=== PATIENT | female | born 1955 | race Caucasian/White ===

== ENCOUNTER 2023-05-04 01:24 | Emergency (ER) | payer MEDICARE, SELFPAY ==
[2023-05-04] VITALS (30 sets, daily range): BP systolic 89–191; BP diastolic 50–89; PULSE 44–87; RESP 11–22; TEMP 36.4; O2SAT 94–100
--- NOTE | ~2023-05-04 | XR_ITS ---
Portable chest x-ray Comparison: 11/23/2003 Clinical History: Shortness of breath Findings: Lungs are clear, without focal consolidation or pleural effusion. Cardiomediastinal silho uette is stable. Bones and soft tissues are unremarkable. Impression: Normal chest. Reviewed, dictated and finalized at location . Impression: Normal chest.
--- NOTE | 2023-05-04 01:38 | ED.GENADULT ---
HPI - General Adult General Chief complaint: Allergic Reaction Stated complaint: allergic reaction, unknown Time Seen by Provider: 05/04/23 01:30 History of Present Illness HPI narrative: Patient presents to the emergency department with allergic reaction. Has not had allergic reactions in the past. She and her both pork and green beans for dinner. Then she gave the dogs a bath in the shower with her soap. She has done this in the past without reaction. However she started to have large hives on her chest abdomen and back. Then started feeling her throat was swelling shut. She has not taken anything prior to arrival. Related Data Allergies Allergy/AdvReac Type Severity Reaction Status Date / Time No Known Allergies Allergy Verified 05/04/23 01:52 Exam Narrative: GENERAL: Well-appearing, well-nourished, and in no acute distress. HEAD: Normocephalic, atraumatic. EYES: PERRLA and EOMI. ENT: Nares clear, no rhinorrhea or epistaxis. Mucous membranes moist. NECK: Supple. CHEST: Clear to auscultation. No respiratory distress. HEART: Regular rate and rhythm. ABDOMEN: Soft, nontender, nondistended. EXTREMITIES: Normal range of motion. No edema. SKIN: Warm, dry, hives diffuse chest abdomen buttock NEURO: No focal deficits. Alert and oriented x3. PSYCH: Normal mood and affect. Course Course Emergency Course: Differential diagnosis includes but not limited to allergic reaction, stress reaction, Food allergy, allergy to shampoo Hives noted on exam. Patient is not having any difficulty swallowing currently and her oxygen saturation is 100% without wheezing on exam. Telemetry ordered due to allergic reaction to evaluate for dysrhythmias. Evaluated by myself. Rhythm NSR Rate 68 Vital Signs Vital signs: Vital Signs Temperature 36.4 C L 05/04/23 01:25 Pulse Rate 81 05/04/23 01:25 Respiratory Rate 22 H 05/04/23 01:25 Blood Pressure 191/89 H 05/04/23 01:25 Pulse Oximetry 100 05/04/23 01:25 Oxygen Delivery Room Air 05/04/23 01:25 Temperature 36.4 C L 05/04/23 01:25 Pulse Rate 78 05/04/23 02:16 Respiratory Rate 15 05/04/23 02:16 Blood Pressure 116/76 05/04/23 02:15 Pulse Oximetry 100 05/04/23 02:16 Oxygen Delivery Room Air 05/04/23 01:25 Medical Decision Making MDM Narrative Medical decision making narrative: Patient received Solu-Medrol and Benadryl. After getting Solu-Medrol her heart rate started to drop to 40s.. Also her blood pressure dropped to 90 systolic from the initial blood pressure of 191/81. Epinephrine ordered and will reassess Due to high probability of clinically significant lift threatening deterioration, the patient required my highest level of preparedness to intervene emergently. Critical care time documented not including procedures needed Due to vital sign changes I spoke to the hospitalist regarding admission for the patient for observation for possible recurrence of shock. Patient has been observed 3 hours since the episode with normal vital signs throughout. Hospitalist states that they will not do anything for her if she is admitted. He recommends discharging her home with an EpiPen. Vital Signs Vital Signs: Vital Signs Temperature 36.4 C L 05/04/23 01:25 Pulse Rate 81 05/04/23 01:25 Respiratory Rate 22 H 05/04/23 01:25 Blood Pressure 191/89 H 05/04/23 01:25 Pulse Oximetry 100 05/04/23 01:25 Oxygen Delivery Room Air 05/04/23 01:25 Temperature 36.4 C L 05/04/23 01:25 Pulse Rate 78 05/04/23 02:16 Respiratory Rate 15 05/04/23 02:16 Blood Pressure 116/76 05/04/23 02:15 Pulse Oximetry 100 05/04/23 02:16 Oxygen Delivery Room Air 05/04/23 01:25 Lab Data 05/04/23 02:07 05/04/23 02:06 Labs: Lab Results 05/04/23 05/04/23 05/04/23 Range/Units 02:06 02:06 02:07 WBC 8.8 (4.5-10.0) K/mm3 RBC 4.11 L (4.2-5.4) M/mm3 Hgb 12.8 (12.0-15.0) g/dL Hct 3
[2023-05-04] MEDS: methylPREDNISolone SOD SUCC 125 MG VIAL IV PUSH (01:53)
[2023-05-04] MEDS: FAMOTIDINE 20 MG/2 ML VIAL IV PUSH (01:53)
[2023-05-04] MEDS: SODIUM CHLORIDE 0.9% IV 1,000 ML 999 ML IV CONT ×2 (01:53→02:10)
--- NOTE | 2023-05-04 01:57 | ECG_ITS ---
Measurements Intervals [place] Rate: 44 P: -4 NV: 112 QRS: 52 QRSD: 79 T: 132 QT: 438 QTc: 377 Interpretive Statements SINUS BRADYCARDIA WITH SHORT NV INTERVAL VOLTAGE CRITERIA FOR LVH ST-T WAVE ABNORMALITY IN LAT/HIGH LAT LEADS- CONSIDER ISCHEMIA BASELINE ARTIFACT- I, II, AVR, AVL, AVF, V1, V5 ABNORMAL ECG NO PREVIOUS ECG AVAILABLE FOR COMPARISON Electronically Signed On 05-04-2023 6:37:20 CDT by Toro Callejas D.O.
--- NOTE | 2023-05-04 02:02 | PC.NURSE ---
Benadryl not given because patient bradycardic with heart rate in the 40s and patient feels dizzy.
[2023-05-04] MEDS: EPINEPHrine HCL INJ 1 MG/ML AMPUL 0.3 MG IM (02:05)
[2023-05-04 02:22] LABS: Basophils Absolute Auto 0.1 K/mm3 (0.0-0.1); Basophils Percent Auto 0.8 % (0.2-1.2); Eosinophils Absolute Auto 0.4 K/mm3 (0-0.3); Eosinophils Percent Auto 4.2 % (0-4.4); Hematocrit 38.3 % (37.0-47.0); Hemoglobin 12.8 g/dL (12.0-15.0); Immature Granulocyte Absolute 0.02 K/mm3 (0.00-0.031); Immature Granulocyte Percent A 0.2 % (0-0.5); Lymphocytes Absolute Auto 3.74 K/mm3 (0.9-3.2); Lymphocytes Percent Auto 42.7 % (18.3-44.2); Mean Corpuscular HGB Conc 33.4 g/dl (32-36); Mean Corpuscular Hemoglobin 31.1 pg (26-34); Mean Corpuscular Volume 93.2 fl (80-100); Monocytes Absolute Auto 0.8 K/mm3 (0.1-0.6); Monocytes Percent Auto 8.9 % (2.6-8.5); Neutrophils Absolute Auto 3.8 K/mm3 (1.3-6.7); Neutrophils Percent Auto 43.2 % (45.5-73.1); Platelet Count Result 229 k/mm3 (150-375); Red Blood Count 4.11 M/mm3 (4.2-5.4); Red Cell Distribution Width 13.1 % (11.5-14.5); White Blood Count 8.8 K/mm3 (4.5-10.0)
[2023-05-04 02:50] LABS: Alanine Aminotransferase 20 U/L (6-35); Albumin Level 3.5 g/dL (3.5-5.1); Alkaline Phosphatase 63 U/L (38-126); Anion Gap 7 mmol/L (8-16); Aspartate Amino Transferase 23 U/L (14-36); Bilirubin,Total 0.3 mg/dL (0.2-1.3); Blood Urea Nitrogen 18 mg/dL (7-17); Calcium 8.4 mg/dL (8.4-10.2); Carbon Dioxide 23 mmol/L (22-30); Chloride 109 mmol/L (98-107); Estimated CRCL calculation 48 ml/min; Estimated Glomerular Filt Rate 50; Glucose 121 mg/dL (65-110); Potassium 3.4 mmol/L (3.4-5.0); Sodium 139 mmol/L (137-145)
[2023-05-04 03:02] LABS: Troponin I < 0.012 ng/mL (0.000-0.034)
--- NOTE | 2023-05-04 04:35 | PC.NURSE ---
Patient able to get up from stretcher and ambulate to bathroom without assistance or dizziness. Patient reports she feels much better now.
== END 2023-05-04 05:35 | disposition home or self-care (01) ==
PROVIDERS: Emergency Provider Emergency Medicine
DX: T78.2XXA Anaphylactic shock, unspecified, initial encounter (principal); R00.1 Bradycardia, unspecified; R94.31 Abnormal electrocardiogram [ECG] [EKG]
CPT/HCPCS: 36415; 71045; 80053; 84484; 85025; 93005; 96361; 96372; 96374; 96375; 99284; J0171; J1200; J2405; J2930; J7030

== ENCOUNTER 2024-12-29 16:13 | Emergency (ER) | payer MEDICARE, SELFPAY ==
--- NOTE | ~2024-12-29 | CT_ITS ---
CT cervical spine wo con Ordering provider: Kaila Mccord MD History: . fall., head injury . Comparison: January 07, 2005 Technique: CT of the cervical spine was performed without contrast. Sagittal and coronal reformatted images were also obtained and reviewed. Automated exposure control and iterative reconstruction ryan hnique were employed. The dose-length product was 390.61 mGy-cm. FINDINGS: VERTEBRAE: No subluxation or acute fracture. The occipital condyles are intact. DISC SPACES: Narrowing of the disc C5-C6.Uncovertebral joint osteoarthritic changes at the same level . Narrowing of the foramina at the level of C3-C4. Narrowing of the right foramen at the level of C4- C5. Bilateral narrowing of the foramina at the level of C5-C6. PARASPINOUS SOFT TISSUES: Normal. IMPRESSION: No acute osseous abnormality cervical spine. Degenerative disc disease at the level of C5-C6. Reviewed, dictated and finalized at location A.
--- NOTE | ~2024-12-29 | CT_ITS ---
CT brain wo con Ordering provider: Kaila Mccord MD History: 69 years Female with . fall., head injury . Comparison: None. Technique: CT of the head without contrast. Radiation reduction technique utilized.The dose-length product was 681 mGy-cm. FINDINGS: BRAIN PARENCHYMA AND CSF SPACES: Mild leukoaraiosis and diffuse cortical atrophy. Mild atheromatous d isease. Possible hypodensity in the area of the arcelia which may indicate old lacunar infarct versus an artifact.. No midline shift, mass effect or hemorrhage. The brain parenchyma and CSF spaces are oth erwise normal. Empty sella turcica. VISUALIZED PARANASAL SINUSES: Right maxillary sinus disease. Otherwise, Well aerated. MASTOIDS: Well aerated. BONES: The bones appear intact. SOFT TISSUES: Visualized nasopharynx is normal. Small left frontal scalp hematoma otherwise, Superfi cial soft tissues are normal. IMPRESSION: No acute intracranial findings. Reviewed, dictated and finalized at location A.
--- OUTSIDE RECORDS SUMMARY | 2024-12-29 16:15 | XMS_ITS | Clinical Summary ---
Author Organization [facility] Address [address] [place] [address] Care Team Providers Care Camera Repairman Name Role Phone Sandra Ball MD Primary Care Provider [phone] Allergies No known active allergies Medications EPINEPHrine 0.3 MG/0.3ML injectionIndicatio ns:Allergy, initial encounter Inject 0.3 mLs (0.3 mg total) into the muscle as needed. 1 each 2 05/13/20 23 Active Vitamin D3 (VITAMIN D) 50 mcg tablet Take 1 tablet (50 mcg total) by mouth daily. Active topiramate (TOPAMAX) 50 MG TabIndications:Cla ss 1 obesity due to excess calories with serious comorbidity and body mass index (BMI) of 33.0 to 33.9 in adult Take 1 tablet (50 mg total) by mouth nightly at bedtime. 90 tablet 1 01/05/20 24 Active atorvastatin (LIPITOR) 10 MG tabletIndications: Mixed hyperlipidemia Take nightly on Tuesdays and . 90 tablet 1 01/05/20 24 Active metFORMIN ER (GLUCOPHAGE-XR) 500 MG 24 hr tabletIndications: Prediabetes Take 1 tablet (500 mg total) by mouth daily with breakfast. 90 tablet 1 01/05/20 24 Active Additional Information Patient not taking.Reported on 09/28/2024 topiramate (TOPAMAX) 50 MG TabIndications:Cla ss 2 severe obesity due to excess calories with serious comorbidity and body mass index (BMI) of 36.0 to 36.9 in adult (CMS/HCC) Take 1 tablet (50 mg total) by mouth 2 (two) times daily. 180 tablet 04/11/20 24 Active methylPREDNISolone , SUZY, (MEDROL DOSEPAK) 4 MG tabletIndications: URTI (acute upper respiratory infection) 6 TABLETS ON DAY ONE, 5 TABLETS DAY TWO, 4 TABLETS DAY THREE, 3 TABLETS DAY FOUR, 2 TABLETS DAY FIVE, AND 1 TABLET DAY SIX 1 each 09/28/19 25 Active Active Problems Problem Noted Date Diagnosed Date Stage 3a chronic kidney disease 09/17/2023 Encounters Date Type Department Care Team Description 12/13/[address] [place], [place] [id number] Sandra Ball MD Follow Up Call 11/09/[address] [place] [address] Sandra Ball MD Appointment Request (Declined AWV) 10/05/[address] [place] [address] Sandra Ball MD Follow Up Call from Last 3 Months Immunizations Immunization Administration Dates Next Due Arexvy Respiratory Syncytial Virus (RSV, adjuvanted) 0.5 mL, PF 12/14/2023 Flublok (Quadrivalent) 05/08/2020 Fluzone High Dose - >Age 65 (Prefilled Syringe) 05/13/2023 Influenza (Generic) 05/08/2020 Influenza Adult (Generic) 06/14/2024,05/16/2021 MODERNA COVID-19 (12+) MRNA, LNP-S, PF, 100 MCG/ 0.5 ML DOSE 07/07/2023 MODERNA COVID-19 (12+), MRNA , LNP-S, PF, 50 MCG/0.5 ML (SPIKEVAX) 12/14/2023 PFIZER COVID-19 (GUTIÉRREZ CAP), MRNA, LNP-S, PF, 30 MCG/0.3 ML GURWINDER-SUCROSE, IM 11/14/2021 PFIZER COVID-19 (ORIGINAL FO RMULATION, PURPLE CAP) mRNA, LNP-S, PF, 30 MCG/0.3 ML DOSE 05/16/2021,2020,10/13/2020 PFIZER COVID-19 BIVALENT (12 +) mRNA, LNP-S, PF, 30 MCG/0.3 ML DOSE 06/14/2024,06/05/2022 Pneumococcal (Pneumovax 23) 08/14/2023 Pneumococcal (Prevnar 20) 12/14/2023 Shingrix 12/05/2022,08/22/2022 Tdap (Adacel) 12/14/2023 Family History Medical History Relation Comments No Known Problems Brother Diabetes Daughter Type 1 at 18 mon ths No Known Problems Father Diabetes Maternal Grandfather roman ry thrombosis Breast Cancer Maternal Grandmother Diabetes Maternal Grandmother heart attack Breast Cancer Mother Diabetes Mother No Known Problems Paternal Grandfather No Known Problems Paternal Grandmother No Known Problems Sister Relation Status Comments Brother Daughter Father Maternal Grandfather Maternal Grandmother Mother Paternal Grandfather Paternal Grandmother Sister Social History Tobacco Use Types Packs/Day Years Used Date Smoking Tobacco: Never Passive Smoke Exposure: Never Smokeless Tobacco: Never Tobacco Cessation:Counseling Given: No Comments:Counseled by Dr. Ball. Alcohol Use Standard Drinks/Week Comments Not Currently 0 (1 standard drink = 0.6 oz pur e alcohol) Seldom PHQ-2 Answer Date Recorded Patient Health Questionnaire-2 Score 0 05/13/2023 Comments No Sex and Gender Information Value Date Recorded Sex Assigned at Female 09/28/2024 12:50 PM JOB TRAINER Legal Sex Female 4:09 PM CDT Gender Identity Female 09/28/2024 12:50 PM JOB TRAINER Sexual Orientation Straight 09/28/2024 12 :50 PM JOB TRAINER Last Filed Vital Signs Vital Sign Reading Time Taken Comments Blood Pressure 128/72 09/28/2024 12:50 PM JOB TRAINER Pulse 80 09/28/2024 12:50 PM JOB TRAINER Temperature 36.3 C (97.4 F) 09/28/2024 12:50 PM JOB TRAINER Respiratory Rate 18 09/28/2024 12:50 PM JOB TRAINER Oxygen Saturation 100% 09/28/2024 12:50 PM JOB TRAINER Inhaled Oxygen Concentration - - Weight 78.7 kg (173 lb 9.6 oz) 01/05/2024 9:45 A M CDT Height 157.5 cm (5' 2 ) 09/28/2024 12:50 PM JOB TRAINER Body Mass Index 31.75 01/05/2024 9:45 AM CDT Plan of Treatment Upcoming Encounters Date Type Department Care Team (Late st Contact Info) Description 01/16/2025 9:20 AM CDT [facility] [address] [address] [address] [place] [address] Sandra Ball MD [address] [facility] [address] [place] [address] Health Maintenance Due Date Last Done Comments COVID-19 Vaccine ( season) 2024 06/14/2024, 12/14/2023, 07/07/2023, Additional history exists PHQ-2 (Physician [place]) 08/17/2024 05/13/2023 Mammogram Screening 07/03/2025 07/03/2023 Colorectal Cancer Screening FIT-DNA (3 Years) 10/19/2026 10/20/2023, 10/20/2023, 06/26/2019 DTaP, Tdap and Td Vaccines (2 - Td or Tdap) 12/13/2033 12/14/2023 Annual Medicare Wellness Visit 11/10/2055 Postponed from 11/02/2020 (Patient Refused) Zoster Vaccines Completed 12/05/2022, 08/22/2022 Dexa Scan (General) Completed 07/03/2023 Hepatitis C Completed 07/17/2023 Pneumococcal Vaccine: 50+ Years Completed 12/14/2023, 08/14/2023 RSV Immunization or 60+ Years Completed 12/14/2023 Meningococcal B Vaccine Aged Out No l onger eligible based on patient's age to complete this topic Meningococcal Vaccine Aged Out No daniel judi eligible based on patient's age to complete this topic RSV Immunizations Under 20 Months Aged Out No longer eligible based on patient's age to complete this topic Procedures Procedure Name Priority Date/Time Associated Diagnosis Comments COLOGUARD (EXACT SCIENCE) Routine 10/20/2023 6:00 AM JOB TRAINER Screen for colon cancer HEPATITIS C ANTIBODY Routine 07/17/2023 9:00 AM JOB TRAINER Encounter for hepatitis C screening test for low risk patient MG SCREENING W JAIRO MELISA DIGI Routine 07/03/2023 2:37 PM JOB TRAINER Encounter for screening mammogram for malignant neoplasm of breast BONE DENSITY/DEXA Routine 07/03/2023 2:0 9 PM JOB TRAINER Postmenopausal from Last 3 Months or Most Recently Relevant to Health Maintenance Results * COLOGUARD ([employer] SCIENCE) (10/20/2023 6:00 AM JOB TRAINER) COLOGUARD RESULT Negative Negative [employer] (CLIA #:[id number]) Comment: NEGATIVE TEST RESULT. A negative Cologuard result indicates a low likelihood that a colorectal cancer (CRC) or advanced adenoma (adenomatous polyps with more advanced pre-malignant features) is present. The chance that a person with a negative Cologuard test has a colorectal cancer is less than 1 in 1500 (negative predictive value >99.9%) or has an advanced adenoma is less than 5.3% (negative predictive value 94.7%). These data are based on a prospective cross-sectional study of 10,000 individuals at average risk for colorectal cancer who were screened with both Cologuard and colonoscopy. (Pedro Rangel al, N Engl J Med 2014;370(14):3923-2656) The normal value (reference range) for this assay is negative. COLOGUARD RE-SCREENING RECOMMENDATION: Periodic colorectal cancer screening is an important part of preventive healthcare for asymptomatic individuals at average risk for colorectal cancer. Following a negative Cologuard result, the [place] Cancer Society and U.S. Multi-Society Task Force screening guidelines recommend a Cologuard re-screening interval of 3 years. References: [place] Cancer Society Guideline for Colorectal Cancer Screening: https://www.cancer.org/cancer/ktuye-zpjdli-wwthso/mywsjalgg-cxmqbtszg-amlxvro/ac s-rec ommendations.html.; Hunter RAMIREZ, Vanessa STEPHEN, Last RAMEY, Colorectal Cancer Screening: Recommendations for Physicians and Patients from the U.S. Multi-Society Task Force on Colorectal Cancer Screening , Am J Gastroenterology 2017; 112:2917-3485. TEST DESCRIPTION: Composite algorithmic analysis of stool DNA-biomarkers with hemoglobin immunoassay. Quantitative values of individual biomarkers are not reportable and are not associated with individual biomarker result reference ranges. Cologuard is intended for colorectal cancer screening of adults of either sex, 45 years or older, who are at average-risk for colorectal cancer (CRC). Cologuard has been approved for use by the U.S. FDA. The performance of Cologuard was established in a cross sectional study of average-risk adults aged 50-84. Cologuard performance in patients ages 45 to 49 years was estimated by sub-group analysis of near-age groups. Colonoscopies performed for a positive result may find as the most clinically significant lesion: colorectal cancer [4.0%], advanced adenoma (including sessile serrated polyps greater than or equal to 1cm diameter) [20%] or non- advanced adenoma [31%]; or no colorectal neoplasia [45%]. These estimates are derived from a prospective cross-sectional screening study of 10,000 individuals at average risk for colorectal cancer who were screened with both Cologuard and colonoscopy. (Pedro Walsh et al, N Engl J Med 2014;370(14):4235-5944.) Cologuard may produce a false negative or false positive result (no colorectal cancer or precancerous polyp present at colonoscopy follow up). A negative Cologuard test result does not guarantee the absence of CRC or advanced adenoma (pre-cancer). The current Cologuard screening interval is every 3 years. ([place] Cancer Society and U.S. Multi-Society Task Force). Cologuard performance data in a 10,000 patient pivotal study using colonoscopy as the reference method can be accessed at the following location: www.[employer]ig[employer].Small Demons/results. Additional description of the Cologuard test process, warnings and precautions can be found at www.[employer].com. STOOL STOOL SPECIMEN / Unknown 10/20/2023 6:00 AM JOB TRAINER 10/22/2023 12:06 PM JOB TRAINER Sandra Ball MD BODY FLUIDS AND STOOLS ORDERABLE S Final Result [facility] [address] [place] [address], [place] [phone] [employer] (CLIA #:[id number]) [address] [place] [address] * HEPATITIS C ANTIBODY W/REFLEX (07/17/2023 9:00 AM JOB TRAINER) HEPATITIS C AB NON-REACTI VE NON-REACTI VE 07/17/2023 10:24 AM JOB TRAINER [facility] 07/17/2023 9:00 AM JOB TRAINER Sandra Ball MD LABORATORY Final Result [facility] [address] [place] [address], [place] [phone] * MG SCREENING W JAIRO MELISA DIGI (07/03/2023 2:37 PM JOB TRAINER) Anatomical Region Laterality Modality Breast Bilateral Mammography 07/03/2023 3:25 PM JOB TRAINER Narrative 07/03/2023 3:28 PM JOB TRAINER EXAMINATION: MG SCREENING W JAIRO MELISA DIGI INDICATIONS: Screening TECHNIQUE: Digital full field CC and MLO screening mammography bilaterally to include 3-D Tomosynthesis technique. This study was read with the assistance of a computer-aided detection system. HISTORY: Family history of breast cancer in mother at age 59 and grandmother at age 65. No documented personal history of breast cancer, prior breast procedure, or current breast complaint. COMPARISON: None. Re-establishing baseline. TISSUE DENSITY: There are scattered areas of fibroglandular density. FINDINGS: Multiple scattered typically benign round, rim, and rodlike/extra calcifications bilaterally. No suspicious microcalcification, focal asymmetry, or mass. No architectural distortion. No axillary adenopathy. IMPRESSION: No mammographic evidence of malignancy. RECOMMENDATION: Routine ScreeningBilateral OVERALL IMAGING ASSESSMENT: ACR BI-RADS 2 - BENIGN FINDING(S). Ordered By: SANDRA BALL Interpreted By: Allen Lloyd, 07/03/2023 3:25 PM Sandra Ball MD MAMMO Final Result * BONE DENSITY/DEXA (07/03/2023 2:09 PM JOB TRAINER) Anatomical Region Laterality Modality Bone Mammography 07/03/2023 4:25 PM JOB TRAINER Impressions 07/03/2023 4:26 PM JOB TRAINER IMPRESSION: WHO Classification: Osteopenia RECOMMENDATIONS: All patients should ensure an adequate intake of dietary calcium and vitamin D. The NOF recommend adults under the age of 50 need 1000 mg of calcium and 400-800 IU of vitamin D daily. Effective therapy for the prevention and treatment of osteoporosis include bisphosphonates. FOLLOW-UP: People with diagnosed cases of osteoporosis or at high risk for fracture should have regular bone mineral density test. For patients eligible for Medicare, routine testing is allowed once every 2 years. Testing frequency can be increased to one year for patients who have rapidly progressing disease, those who are receiving or discontinuing medical therapy to restore bone mass, or have additional risk factors. Ordered By: SANDRA BALL Interpreted By: Allen Lloyd, 07/03/2023 4:25 PM Narrative 07/03/2023 4:26 PM JOB TRAINER EXAMINATION: BONE DENSITY/DEXA INDICATIONS: Asymptomatic menopausal state COMPARISON: None TECHNIQUE: DEXA bone mineral density evaluation was performed in the AP projection over the lumbar spine and both hips utilizing standard imaging techniques. FINDINGS: The BMD measured at the AP spine L1-L4 is 1.293 g/cm? with a T-score of 2.2. The BMD measured at the left femoral neck is 0.742 g/cm? with a T-score of -0.1. The BMD measured at the left hip is 0.993 g/cm? with a T-score of 0.4. The BMD measured at the right femoral neck is 0.726 g/cm? with a T-score of - 1.1. The BMD measured at the right hip is 0.996 g/cm? with a T-score of 0.4. FRAX 10-year fracture risk: Major Osteoporotic Fracture: 8% Hip Fracture: 0.7% Procedure Note Allen Lloyd MD - 07/03/2023 EXAMINATION: BONE DENSITY/DEXA INDICATIONS: Asymptomatic menopausal state COMPARISON: None TECHNIQUE: DEXA bone mineral density evaluation was performed in the APprojection over the lumbar spine and both hips utilizing standard imagingtechniques. FINDINGS: The BMD measured at the AP spine L1-L4 is 1.293 g/cm? with a T-score of2.2. The BMD measured at the left femoral neck is 0.742 g/cm? with a T-score of-0.1. The BMD measured at the left hip is 0.993 g/cm? with a T-score of 0.4. The BMD measured at the right femoral neck is 0.726 g/cm? with a T-scoreof -1.1. The BMD measured at the right hip is 0.996 g/cm? with a T-score of 0.4. FRAX 10-year fracture risk: Major Osteoporotic Fracture: 8% Hip Fracture: 0.7% IMPRESSION: WHO Classification: Osteopenia RECOMMENDATIONS: All patients should ensure an adequate intake of dietary calcium andvitamin D. The NOF recommend adults under the age of 50 need 1000 mg ofcalcium and 400-800 IU of vitamin D daily. Effective therapy for theprevention and treatment of osteoporosis include bisphosphonates. FOLLOW-UP: People with diagnosed cases of osteoporosis or at high risk for fractureshould have regular bone mineral density test. For patients eligible forMedicare, routine testing is allowed once every 2 years. Testing frequencycan be increased to one year for patients who have rapidly progressingdisease, those who are receiving or discontinuing medical therapy torestore bone mass, or have additional risk factors. Ordered By: SANDRA BALL Interpreted By: Allen Lloyd, 07/03/2023 4:25 PM Sandra Ball MD DEXA Final Result from Last 3 Months or Most Recently Relevant to Health Maintenance Insurance MEDICARE [facility] Care Teams Camera Repairman Relationship Specialty Start Date End Date Sandra Ball MD [address] [facility] [address] [place] [id number] PCP - General INTERNAL MEDICINE 03/10/23
--- OUTSIDE RECORDS SUMMARY | 2024-12-29 16:15 | XMS_ITS | Encounter Summary ---
Author Organization [facility] Address [address] [place] [address] Care Team Providers Care Die Repairer Stamping Name Role Phone Sandra Ball MD Primary Care Provider [phone] Encounter Details Date Type Department Care Team (Latest Contact Info) Description 04/16/2024 MyChart Message Enc [address] [address] Sandra Ball MD [address] [place] [phone] missed appointment Social History Tobacco Use Types Packs/Day Years Used Date Smoking Tobacco: Never Passive Smoke Exposure: Never Smokeless Tobacco: Never Comments:Counseled by Dr. Sabina cee. Alcohol Use Standard Drinks/Week Comments Not Currently 0 (1 standard drink = 0.6 oz pur e alcohol) Seldom PHQ-2 Answer Date Recorded Patient Health Questionnaire-2 Score 0 05/13/2023 Comments No Sex and Gender Information Value Date Recorded Sex Assigned at Female 09/28/2024 12:50 PM HALVER MACHINE OPERATOR Legal Sex Female 4:09 PM CDT Gender Identity Female 09/28/2024 12:50 PM HALVER MACHINE OPERATOR Sexual Orientation Straight 09/28/2024 12 :50 PM HALVER MACHINE OPERATOR documented as of this encounter Plan of Treatment Upcoming Encounters Date Type Department Care Team (Late st Contact Info) Description 01/16/2025 9:20 AM CDT Office Visit [address] [address] [address] [place] [address] Sandra Ball MD [address] [facility] [address] [place] [address] documented as of this encounter Visit Diagnoses Not on filedocumented in this encounter Additional Health Concerns Infection Onset Date Last Indicated Resolved Time COVID-19 Rule Out 09/28/2024 09/28/2024 09/28/2024 4:25 PM HALVER MACHINE OPERATOR documented as of this encounter Care Teams Die Repairer Stamping Relationship Specialty Start Date End Date Sandra Ball MD [address] [facility] [address] [place] [address] PCP - General INTERNAL MEDICINE 03/10/23 documented as of this encounter
[2024-12-29 16:19] VITALS: BP 127/74; PULSE 67; RESP 17; TEMP 37; O2SAT 98
--- OUTSIDE RECORDS SUMMARY | 2024-12-29 16:42 | XMS_ITS | Clinical Summary ---
Author Organization [facility] Address [address] [place] [address] Care Team Providers Care Director Of Video Analytics Name Role Phone Sandra Ball MD Primary Care Provider [phone] Allergies No known active allergies Medications EPINEPHrine [...] Type Department Care Team Description 12/13/[address] [place], [place] [id number] Sandra Ball MD Follow Up Call 11/09/[address] [place] [address] Sandra Ball MD Appointment Request (Declined AWV) 10/05/[address] [place] [address] Sandra Ball MD Follow Up [...] Sex Assigned at Female 09/28/2024 12:50 PM HYDRO STATION SUPERVISOR Legal Sex Female 4:09 PM CDT Gender Identity Female 09/28/2024 12:50 PM HYDRO STATION SUPERVISOR Sexual Orientation Straight 09/28/2024 12 :50 PM HYDRO STATION SUPERVISOR Last Filed Vital Signs Vital Sign Reading Time Taken Comments Blood Pressure 128/72 09/28/2024 12:50 PM HYDRO STATION SUPERVISOR Pulse 80 09/28/2024 12:50 PM HYDRO STATION SUPERVISOR Temperature 36.3 C (97.4 F) 09/28/2024 12:50 PM HYDRO STATION SUPERVISOR Respiratory Rate 18 09/28/2024 12:50 PM HYDRO STATION SUPERVISOR Oxygen Saturation 100% 09/28/2024 12:50 PM HYDRO STATION SUPERVISOR Inhaled Oxygen Concentration - - Weight 78.7 kg (173 lb 9.6 oz) 01/05/2024 9:45 A M CDT Height 157.5 cm (5' 2 ) 09/28/2024 12:50 PM HYDRO STATION SUPERVISOR Body Mass Index 31.75 01/05/2024 9:45 AM CDT Plan of Treatment Upcoming Encounters Date Type Department Care Team (Late st Contact Info) Description 01/16/2025 9:20 AM CDT Office Visit [facility] [address] [address] [address] [place] [address] Sandra Ball MD [address] [facility] [place] [address] Health Maintenance Due Date Last Done Comments COVID-19 Vaccine ( season) 2024 06/14/2024, 12/14/2023, 07/07/2023, Additional history exists PHQ-2 (Physician Malone) 08/17/2024 05/13/2023 Mammogram Screening 07/03/2025 07/03/2023 Colorectal [...] COLOGUARD (EXACT SCIENCE) Routine 10/20/2023 6:00 AM HYDRO STATION SUPERVISOR Screen for colon cancer HEPATITIS C ANTIBODY Routine 07/17/2023 9:00 AM HYDRO STATION SUPERVISOR Encounter for hepatitis C screening test for low risk patient MG SCREENING W JAIRO MELISA DIGI Routine 07/03/2023 2:37 PM HYDRO STATION SUPERVISOR Encounter for screening mammogram for malignant neoplasm of breast BONE DENSITY/DEXA Routine 07/03/2023 2:0 9 PM HYDRO STATION SUPERVISOR Postmenopausal from Last 3 Months or Most Recently Relevant to Health Maintenance Results * COLOGUARD ([email or web address] SCIENCE) (10/20/2023 6:00 AM HYDRO STATION SUPERVISOR) COLOGUARD RESULT Negative Negative Epom[facility] ALTILIA (CLIA #:[id number]) Comment: NEGATIVE TEST RESULT. A negative Cologuard [...] (Pedro Rangel al, N Engl J Med 2014;370(14):6935-5919) The normal value (reference range) for this assay is negative. COLOGUARD RE-SCREENING RECOMMENDATION: Periodic colorectal cancer screening is an important part of preventive healthcare for asymptomatic individuals at average risk for colorectal cancer. Following a negative Cologuard result, the [place] [employer] Society and U.S. Multi-Society Task Force screening guidelines recommend a Cologuard re-screening interval of 3 years. References: [place] [employer] Society Guideline for Colorectal Cancer Screening: https://www.cancer.org/cancer/ugnyl-nagjan-unqpde/piipomfbz-qmiytwxgj-bndmfdx/ac s-rec ommendations.html.; Hunter RAMIREZ, Vanessa STEPHEN, Last RAMEY, Colorectal Cancer Screening: Recommendations for Physicians and Patients from the U.S. Multi-Society Task Force on Colorectal Cancer Screening , Am J Gastroenterology 2017; 112:4837-5901. TEST DESCRIPTION: Composite algorithmic analysis of stool [...] Walsh et al, N Engl J Med 2014;370(14):6699-6496.) Cologuard may produce a false negative or false positive result (no colorectal cancer or precancerous polyp present at colonoscopy follow up). A negative Cologuard test result does not guarantee the absence of CRC or advanced adenoma (pre-cancer). The current Cologuard screening interval is every 3 years. ([place] [employer] Society and U.S. Multi-Society Task Force). Cologuard performance data in a 10,000 patient pivotal study using colonoscopy as the reference method can be accessed at the following location: www.[employer].GFRANQ/results. Additional description of the Cologuard test process, warnings and precautions can be found at www.MEDOVENTrd.com. STOOL STOOL SPECIMEN / Unknown 10/20/2023 6:00 AM HYDRO STATION SUPERVISOR 10/22/2023 12:06 PM HYDRO STATION SUPERVISOR Sandra Ball MD BODY FLUIDS AND STOOLS ORDERABLE S Final Result [employer] [address] [place] [address], [place] [phone] [email or web address] (CLIA #:[id number]) [address] [place] [address] * HEPATITIS C ANTIBODY W/REFLEX (07/17/2023 9:00 AM HYDRO STATION SUPERVISOR) HEPATITIS C AB NON-REACTI VE NON-REACTI VE 07/17/2023 10:24 AM HYDRO STATION SUPERVISOR [facility] 07/17/2023 9:00 AM HYDRO STATION SUPERVISOR Sandra Ball MD LABORATORY Final Result [facility] [address] [place] [address], [place] [phone] * MG SCREENING W JAIRO MELISA DIGI (07/03/2023 2:37 PM HYDRO STATION SUPERVISOR) Anatomical Region Laterality Modality Breast Bilateral Mammography 07/03/2023 3:25 PM HYDRO STATION SUPERVISOR Narrative 07/03/2023 3:28 PM HYDRO STATION SUPERVISOR EXAMINATION: MG SCREENING W JAIRO MELISA DIGI [...] Result * BONE DENSITY/DEXA (07/03/2023 2:09 PM HYDRO STATION SUPERVISOR) Anatomical Region Laterality Modality Bone Mammography 07/03/2023 4:25 PM HYDRO STATION SUPERVISOR Impressions 07/03/2023 4:26 PM HYDRO STATION SUPERVISOR IMPRESSION: WHO Classification: Osteopenia RECOMMENDATIONS: All patients [...] 07/03/2023 4:25 PM Narrative 07/03/2023 4:26 PM HYDRO STATION SUPERVISOR EXAMINATION: BONE DENSITY/DEXA INDICATIONS: Asymptomatic menopausal state [...] Recently Relevant to Health Maintenance Insurance MEDICARE [facility] Care Teams Director Of Video Analytics Relationship Specialty Start Date End Date Sandra Ball MD [address] [facility] [place] [id number] PCP - General INTERNAL MEDICINE 03/10/23
--- OUTSIDE RECORDS SUMMARY | 2024-12-29 16:42 | XMS_ITS | Encounter Summary ---
Author Organization [facility] Address [address] [place] [address] Care Team Providers Care Workday Director Name Role Phone Sandra Ball MD Primary Care Provider [phone] Encounter Details Date Type Department Care Team (Latest Contact Info) Description 04/16/2024 MyChart Message Enc [address] [address] Sandra Ball MD [address] [place] [address] [phone] missed appointment Social History Tobacco Use Types [...] Sex Assigned at Female 09/28/2024 12:50 PM FUEL BUYER Legal Sex Female 4:09 PM CDT Gender Identity Female 09/28/2024 12:50 PM FUEL BUYER Sexual Orientation Straight 09/28/2024 12 :50 PM FUEL BUYER documented as of this encounter Plan of Treatment Upcoming Encounters Date Type Department Care Team (Late st Contact Info) Description 01/16/2025 9:20 AM CDT Office Visit [address] [address] [address] [place] [address] Sandra Ball MD [address] [facility] [address] [place] [address] documented as of this encounter Visit Diagnoses Not on filedocumented in this encounter Additional Health Concerns Infection Onset Date Last Indicated Resolved Time COVID-19 Rule Out 09/28/2024 09/28/2024 09/28/2024 4:25 PM FUEL BUYER documented as of this encounter Care Teams Workday Director Relationship Specialty Start Date End Date Sandra Ball MD [address] [facility] [address] [place] [address] PCP - General INTERNAL MEDICINE 03/10/23 documented as of this encounter
--- NOTE | 2024-12-29 16:59 | ED.HEATRA ---
HPI - Head Injury General Chief complaint: Head Injury Stated complaint: Head head on concrete-tripped Time Seen by Provider: 12/29/24 16:23 History of Present Illness HPI Narrative: Patient was working at her [employer] when she tripped on her sandals and fell, scraping her knee, hitting her head, there is no of caution of hers has not a tenderness, she does have a small scrape to her head. Tetanus Is up-to-date. Related Data Allergies Allergy/AdvReac Type Severity Reaction Status Date / Time No Known Allergies Allergy Verified 12/29/24 16:14 Review of Systems Review of Systems: All systems reviewed & are unremarkable except as noted in HPI and below Exam Narrative: EXAMINATION OF ORGAN SYSTEMS/BODY AREAS: Constitutional: Vital signs per nursing GENERAL:[No acute distress, non-toxic appearing.] HEAD: Small contusion to left forehead EYES: EOMI, conjunctiva normal ENT: Hearing grossly intact, tiny abrasion to left upper eyebrow LUNGS: Nonlabored breathing. HEART: [Regular rate and rhythm] ABD: [Soft], [nontender to palpation] EXT: Normal range of motion, small abrasions to bilateral knees SKIN: She abrasions to left eyebrow, knees as above NEURO: [Alert and oriented x 3. No gross focal sensory or strength deficits.] PSYCH: Normal affect Course Vital Signs Vital signs: Vital Signs Temperature 98.6 F 12/29/24 16:19 Pulse Rate 67 12/29/24 16:19 Respiratory Rate 17 12/29/24 16:19 Blood Pressure 127/74 12/29/24 16:19 Pulse Oximetry 98 12/29/24 16:19 Oxygen Delivery Room Air 12/29/24 16:19 Temperature 98.6 F 12/29/24 16:19 Pulse Rate 67 12/29/24 16:19 Respiratory Rate 17 12/29/24 16:19 Blood Pressure 127/74 12/29/24 16:19 Pulse Oximetry 98 12/29/24 16:19 Oxygen Delivery Room Air 12/29/24 16:19 MDM - Head Injury MDM Narrative Medical decision making narrative: Patient presents here after mechanical fall, she is very well-appearing, has some superficial abrasions, tetanus is up-to-date, given her age I did obtain CT head and C-spine which were negative. Patient discharge in stable condition Discharge Plan Discharge Clinical Impression: Closed head injury Patient Disposition: Home Condition: Stable Instructions: Head Injury (ED) Additional Instructions: Please follow up with your doctor; you can always return for any further issues. Patient Language: Sinhala Prescriptions: No Action epinephrine [EpiPen] 0.3 mg/0.3 mL auto-injector 0.3 mg IM ONCE Qty: 2 0RF Rx Instructions: as a single dose; may repeat once Follow-up/Referrals: Lizzy,MD Sandra [Primary Care Provider] - 2 Days
== END 2024-12-29 18:39 | disposition home or self-care (01) ==
PROVIDERS: Emergency Provider Emergency Medicine; PCP Internal Medicine
DX: S09.90XA Unspecified injury of head, initial encounter (principal); W01.0XXA Fall on same level from slipping, tripping and stumbling without subsequent striking against object, initial encounter
CPT/HCPCS: 70450; 72125; 99284